=== PATIENT | female | born 1965 | race Caucasian/White ===

== ENCOUNTER 2016-07-08 11:34 | Emergency (ER) | payer OTHER ==
[2016-07-08 11:39] VITALS: BP 140/86; PULSE 69; TEMP 98.3; BMI 22.4
[2016-07-08] MEDS ORDERED: DOXYCYCLINE HYCLATE 100 MG CAPSULE PO ONE (12:08)
--- NOTE | 2016-07-08 12:10 | PDOC ---
History of Present Illness - General Chief Complaint: Bite Stated Complaint: EMPLOYEE, TICK Time Seen by Provider: 07/08/16 11:58 - History of Present Illness Initial Comments: 07/08/16 12:13 Complaint: Tick bite Patient is a 51-year-old female with a history of thyroid issues, who states that she noticed something scratching on her back , located and there was a tick present. Tick is still moving and is not engorged. 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 GENERAL/CONSTITUTIONAL: No fever, weakness. dizziness HEAD, EYES, EARS, NOSE AND THROAT: No change in vision. No ear pain or discharge. No sore throat. CARDIOVASCULAR: No chest pain RESPIRATORY: No shortness of breath or cough GASTROINTESTINAL: No pain, nausea, vomiting, diarrhea or constipation GENITOURINARY: No dysuria MUSCULOSKELETAL: No neck or back pain SKIN: No rash, +tick bite NEUROLOGIC: No headache, vertigo, loss of consciousness, or loss of sensation. GENERAL: The patient is awake, alert, and fully oriented, in no acute distress. HEAD: Normal with no signs of trauma. EYES: Pupils equal, round and reactive to light, sclera anicteric, conjunctiva clear. ENT: pharynx: no erythema, no exudate, uvula midline NECK: supple CHEST: clear, nontender, rr ABD: soft, nontender EXTREMITIES: Normal range of motion, no edema. NEUROLOGICAL: Normal speech, normal gait. SKIN: Warm, Dry, tick present upper back, moving, not engorged, no signs of infection Past History - Past Medical History Allergies/Adverse Reactions: Allergies Allergy/AdvReac Type Severity Reaction Status Date / Time hydrocodone Allergy Verified 07/08/16 11:36 Home Medications: Ambulatory Orders NK [No Known Home Medication] 03/14/14 Thyroid Disease: Yes (hypo) - Surgical History Cholecystectomy: Yes - Psycho/Social/Smoking Cessation Hx Anxiety: No Suicidal Ideation: No Smoking History: Never smoked Have you smoked in the past 12 months: No Information on smoking cessation initiated: No Hx Alcohol Use: No Drug/Substance Use Hx: No Substance Use Type: None *Physical Exam - Vital Signs Last Vital Signs Temp Pulse Resp BP Pulse Ox 98.3 F 69 18 140/86 100 07/08/16 11:36 07/08/16 11:36 07/08/16 11:36 07/08/16 11:36 07/08/16 11:36 Procedures - Additional Procedures Progress: 07/08/16 12:23 Removal of tick, area cleaned with Betadine, after superficial tick was removed , injected with lidocaine local anesthesia and rest of tick was removed with 18- gauge needle without any difficulty area was cleaned, bacitracin and Band-Aid applied Medical Decision Making - Medical Decision Making 07/08/16 12:23 She will tick bite, not obviously engorged and still moving, discussed with patient that treatment of Lyme is not necessary but she does have the option for taking 1 dose of doxycycline 200 which she had already wanted to do. This will be done, tick was removed and she was given instructions what to watch for and to follow-up with her doctor *DC/Admit/Observation/Transfer Diagnosis at time of Disposition: Tick bite of back Qualifiers: Encounter type: initial encounter Qualified Code(s): S30.860A - Insect bite ( nonvenomous) of lower back and pelvis, initial encounter - Discharge Dispostion Disposition: HOME Condition at time of disposition: Stable - Referrals Referrals: STAFF,NOT ON [Primary Care Provider] - - Patient Instructions Printed Discharge Instructions: Lyme Disease Additional Instructions: You do not have Lyme disease but you were given instructions that you know what to look for. He was treated with doxycycline 200 mg 1 dose as a preventative although it is not clear that the tick was on long enough or will cause Lyme disease. Follow-up with your doctor if you have fever, noticed a rash, headache or feel fatigued or joint pain. Or if you have any other concerns.
== END 2016-07-08 12:20 | disposition home or self-care (01) ==
LOC: JERFT 11:34
PROC: 0HC6XZZ Extirpation of Matter from Back Skin, External Approach (ICD-10-PCS; principal; 2016-07-08)
DX: S20.469A Insect bite (nonvenomous) of unspecified back wall of thorax, initial encounter (principal); W57.XXXA Bitten or stung by nonvenomous insect and other nonvenomous arthropods, initial encounter; Y93.89 Activity, other specified
CPT/HCPCS: 99281-25

== ENCOUNTER 2018-02-03 15:33 | Emergency (ER) | payer OTHER ==
[2018-02-03 15:37] VITALS: BP 119/81; PULSE 92; TEMP 98.2; BMI 25.4
--- NOTE | 2018-02-03 15:37 | PDOC ---
Rapid Medical Evaluation Chief Complaint: Urinary Problem Time Seen by Provider: 02/03/18 15:35 Medical Evaluation: Allergies Allergy/AdvReac Type Severity Reaction Status Date / Time hydrocodone Allergy Verified 10/08/17 18:03 02/03/18 15:36 I have performed a brief in person evaluation of the patient. The patient presents with a CC of: dysuria PE: Skin: No visible rash Lungs: Clear Heart:RRR MS: Moves all extremities without difficulty Neuro: Alert and oriented Psych: Appropriate affect I have ordered the following: UA and UC The patient will proceed to the [facility] for further evaluation. Discharge Disposition - Diagnosis Urinary tract infection Qualifiers: Urinary tract infection type: site unspecified Hematuria presence: without hematuria Qualified Code(s): N39.0 - Urinary tract infection, site not specified - Referrals - Patient Instructions - Post Discharge Activity
[2018-02-03 15:55] LABS: URINE APPEARANCE CLEAR; URINE BILIRUBIN NEGATIVE (<2.0 mg/dL); URINE COLOR STRAW; URINE GLUCOSE (UA) NEGATIVE (NEGATIVE); URINE KETONE NEGATIVE (NEGATIVE); URINE LEUK ESTERASE 2+ (NEGATIVE); URINE NITRITE NEGATIVE (NEGATIVE); URINE PROTEIN NEGATIVE (NEGATIVE); URINE UROBILINOGEN NEGATIVE mg/dL (0.2-1.0)
[2018-02-03 16:14] LABS: EPI CELLS RARE /HPF (FEW)
[2018-02-03] MEDS ORDERED: PHENAZOPYRIDINE HCL 100 MG TABLET (FP) PO ONE (16:18)
[2018-02-03] MEDS ORDERED: CEPHALEXIN MONOHYDRATE 500 MG CAPSULE (UD) PO STA (16:19)
--- NOTE | 2018-02-03 16:24 | PDOC ---
History of Present Illness - General Chief Complaint: Urinary Problem Stated Complaint: UTI Time Seen by Provider: 02/03/18 15:35 History Source: Patient Exam Limitations: No Limitations - History of Present Illness Travel History: No Initial Comments: 02/03/18 16:24 52 yr female history of hypothyroidism with one day dysuria, frequency. no fever no chills no abd or back pain. Timing/Duration: reports: constant Quality: reports: moderate, fullness Abdominal Pain Onset Location: reports: suprapubic Pain Radiation: reports: no radiation Past History - Past Medical History Allergies/Adverse Reactions: Allergies Allergy/AdvReac Type Severity Reaction Status Date / Time hydrocodone Allergy Verified 02/03/18 15:37 Home Medications: Ambulatory Orders Levothyroxine [Synthroid -] 75 mcg PO DAILY 10/08/17 Cephalexin [Keflex] 500 mg PO BID #14 capsule 02/03/18 Phenazopyridine HCl [Pyridium] 200 mg PO TID #6 tablet 02/03/18 COPD: No Thyroid Disease: Yes (hypo) - Surgical History Abdominal Surgery: Yes (tubal ligation) Cholecystectomy: Yes - Suicide/Smoking/Psychosocial Hx Smoking History: Never smoked Have you smoked in the past 12 months: No Hx Alcohol Use: No Drug/Substance Use Hx: No Substance Use Type: None Abd/GI Specific PMHX - Complaint Specific PMHX Colitis: No Diverticulitis: No Gall Bladder Disease: No GERD: No Hepatitis: No Irritable Bowel Synd (IBS): No Pancreatitis: No GI Ulcer Disease: No Review of Systems - Review of Systems Able to Perform ROS?: Yes Is the patient limited Japanese proficient: No Constitutional: No: Symptoms Reported HEENTM: No: Symptoms Reported Respiratory: No: Symptoms reported Cardiac (ROS): No: Symptoms Reported ABD/GI: No: Symptoms Reported : Yes: Symptoms Reported *Physical Exam - Vital Signs Last Vital Signs Temp Pulse Resp BP Pulse Ox 98.2 F 92 H 18 119/81 98 02/03/18 15:34 02/03/18 15:34 02/03/18 15:34 02/03/18 15:34 02/03/18 15:34 - Physical Exam General Appearance: Yes: Nourished, Appropriately Dressed HEENT: positive: EOMI, GEOVANI Gastrointestinal/Abdominal: positive: Normal Bowel Sounds, Soft Musculoskeletal: positive: Normal Inspection. negative: CVA Tenderness, CVA Tenderness (R), CVA Tenderness (L) Extremity: positive: Normal Capillary Refill, Normal Inspection, Normal Range of Motion Integumentary: positive: Normal Color, Dry, Warm Neurologic: positive: Fully Oriented, Alert, Normal Mood/Affect, Normal Response , Motor Strength 5/5 ED Treatment Course - ADDITIONAL ORDERS Additional order review: Laboratory Results 02/03/18 15:45 Urine Color Straw Urine Appearance Clear Urine pH 6.0 Ur Specific [place] 1.005 L Urine Protein Negative Urine Glucose (UA) Negative Urine Ketones Negative Urine Blood 2+ H Urine Nitrite Negative Urine Bilirubin Negative Urine Urobilinogen Negative Ur Leukocyte Esterase 2+ H Urine WBC (Auto) 44-50 Urine RBC (Auto) 15-20 Ur Epithelial Cells Rare Medical Decision Making - Medical Decision Making 02/03/18 16:26 cc: suprapubic discomfort dysuria one day will r/o UTI treat with pyridium, keflex culture pending pt agrees with plan of care all questions asked and answered *DC/Admit/Observation/Transfer Diagnosis at time of Disposition: Urinary tract infection Qualifiers: Urinary tract infection type: site unspecified Hematuria presence: without hematuria Qualified Code(s): N39.0 - Urinary tract infection, site not specified - Discharge Dispostion Disposition: HOME Condition at time of disposition: Good - Prescriptions Prescriptions: Cephalexin [Keflex] 500 mg PO BID #14 capsule Phenazopyridine HCl [Pyridium] 200 mg PO TID #6 tablet - Referrals Referrals: Aminta Chavarria NP [Primary Care Provider] - - Patient Instructions Printed Discharge Instructions: DI for Urinary Tract Infection (UTI) Additional Instructions: drink pleanty of water avoid holding in the urine, always void right away take the medication as prescribed Return to ER for any worsening symptoms - Post Discharge Activity
[2018-02-03] MEDS ORDERED: CEPHALEXIN MONOHYDRATE 500 MG CAPSULE (UD) ONE (16:25)
[2018-02-03] MEDS ORDERED: PHENAZOPYRIDINE HCL 100 MG TABLET (FP) ONE (16:25)
== END 2018-02-03 16:33 | disposition home or self-care (01) ==
LOC: JERFT 15:33
DX: N39.0 Urinary tract infection, site not specified (principal); E03.9 Hypothyroidism, unspecified
CPT/HCPCS: 81003; 81015; 87086; 87186; 99281-25